=== PATIENT | female | born 1935 | race Caucasian/White ===

== ENCOUNTER → 2017-01-18 | Outpatient (CLI) | payer MEDICARE, OTHER ==
[~2017-01-18] MED LIST: ACET300T2 PO; ATEN50TA PO; ATOR40TA PO; ATOR40TA16 PO; CARD240C6 PO; CHOL5000 PO; CYCL5TAB PO; D 50CAP PO; DABI150 PO; DIGO0.12 PO; DILT-47 PO; GLUCTAB PO; LEVO75TA3 PO; METF500T PO; OMEP20TA39 PO; OMEP20TA93 PO; PRAD150C PO; SUCR1SUS5 PO
[2017-01-18 10:19] LABS: HEMATOCRIT 40.8 % (35.0-46.0); MEAN CELL VOLUME 84.4 FL (80.0-100.0); MEAN CORPUSCULAR HEMOGLOBIN 27.3 PG (27.0-34.0); MEAN CORPUSCULAR HGB CONC 32.3 % (32.0-36.0); PLATELET COUNT 221 TH/MM3 (150-450); RED BLOOD COUNT 4.84 MIL/MM3 (4.00-5.30); RED CELL DISTRIBUTION WIDTH 14.4 % (11.6-17.2); REVIEW FLAG FINAL; WHITE BLOOD COUNT 10.1 TH/MM3 (4.0-11.0)
[2017-01-18 10:20] LABS: APTT (PATIENT) 39.4 SEC (24.3-30.1); INTERNATIONAL NORMALIZED RATIO 1.1 RATIO; PROTHROMBIN TIME - PATIENT 12.5 SEC (9.8-11.6)
[2017-01-18 10:38] LABS: BLOOD, URINE NEG (NEG); GLUCOSE,URINE NEG (NEG); HYALINE CAST, URINE 4 /lpf (RARE); KETONE, URINE NEG (NEG); MUCUS URINE FEW /lpf (OCC); NITRITE,URINE NEG (NEG); PH, URINE 5.5 (5.0-8.5); SQUAMOUS EPITHELIAL CELL URINE 2 /hpf (0-5); URINE COLOR YELLOW (YELLW/STRAW)
[2017-01-18 10:39] LABS: COMMENT (UR) CATH-CULT NOT IND; CULTURE IF INDICATED CATH CULTURE NOT IND
[2017-01-18 11:06] LABS: POTASSIUM 4.1 MEQ/L (3.5-5.1)
== END ==
LOC: CPRE 09:11
PROVIDERS: ATTEND Orthopaedic Surgery
DX: Z01.812 Encounter for preprocedural laboratory examination (principal); M16.11 Unilateral primary osteoarthritis, right hip; M79.609 Pain in unspecified limb; I10 Essential (primary) hypertension
CPT/HCPCS: 80048; 81001; 85027; 85610; 85730

== ENCOUNTER 2017-01-23 11:19 | Emergency (ER) | payer MEDICARE, OTHER ==
[~2017-01-23 11:19] MED LIST changes: -ATOR40TA PO; -CARD240C6 PO; -CYCL5TAB PO; -D 50CAP PO; -DABI150 PO; -GLUCTAB PO; -OMEP20TA39 PO; -SUCR1SUS5 PO
[2017-01-23 11:22] VITALS: BP 165/72; PULSE 75; RESP 18; TEMP 97.7; O2SAT 96
[2017-01-23 12:11] VITALS: PULSE 76; RESP 16; O2SAT 99
[2017-01-23] MEDS ORDERED: SODIUM CHLORIDE 0.9% FLUSH 10 ML FLUSH IVF PRN (12:15)
[2017-01-23] MEDS ORDERED: ORPHENADRINE INJ 60 MG/2 ML AMP IV ONE (12:15)
[2017-01-23] MEDS ORDERED: KETOROLAC TROMETHAMINE 30 MG/ML (IVP) VIAL IVP ONE (12:15)
--- NOTE | 2017-01-23 12:20 | PD ---
HPI Chief Complaint: Headache Time Seen by Provider: 11:50 Travel History International Travel<30 days: No Contact w/Intl Traveler<30days: No Traveled to known affect area: No History of Present Illness HPI Patient is an 81-year-old female presenting to the emergency room for evaluation of a headache. Patient states the headache started yesterday, it was preceded by neck pain which started on Sunday. Patient states she felt as if she had a "crick" in her neck which has gotten progressively worse since that time. She states that her pain is a 6 out of 10. She took Tylenol No. 3 at 5:00 this morning with some relief of symptoms but no resolution. She went to [facility] yesterday and was diagnosed with bronchitis, they provided her with a prescription for baclofen to be taken once a day, she took it last night with no relief of symptoms. Patient states her headache radiates from the her neck up the back of her head. Patient has been off of Pradaxa due to hip surgery that was scheduled for today, it was subsequently postponed due to patient's bronchitis. She took a dose of Pradaxa last night. Patient reports a productive cough with yellow sputum, she denies any fever, chills, nausea, vomiting, chest pain, abdominal pain or shortness of breath. She further denies any photophobia or visual changes. Family members at bedside. PFSH Past Medical History Hx Anticoagulant Therapy: Yes (PRADAXA) Arthritis: Yes Atrial Fibrillation: Yes Congestive Heart Failure: Yes Diabetes: Yes Patient Takes Glucophage: Yes Diminished Hearing: No Endocrine: Yes GERD: Yes Gout: Yes Genitourinary: Yes (URETHRAL DILATION, HX BLADDER INFECTIONS X 2) Hepatitis: No Hiatal Hernia: No Hypertension: Yes Immune Disorder: No Neurologic: No Psychiatric: No Reproductive: No Respiratory: No Thyroid Disease: Yes Tetanus Vaccination: < 5 Years Influenza Vaccination: Yes ?: Not : 6 Para: 6 Past Surgical History AICD: No Appendectomy: Yes Body Medical Devices: hardward in the right tibia and right ankle left knee Cholecystectomy: Yes Eye Surgery: Yes (netta cataract removal) Genitourinary Surgery: Yes (URETHRAL DILATION) Hysterectomy: Yes Joint Replacement: Yes (RIGHT HIP) Oral Surgery: Yes (dental implants) Pacemaker: Yes Tonsillectomy: Yes Social History Alcohol Use: Yes (OCC.) Tobacco Use: No (quit 1981) Substance Use: No Allergies-Medications (Allergen,Severity, Reaction): Coded Allergies: colchicine (Verified Adverse Reaction, Severe, VOMITING, 01/23/17) Uncoded Allergies: GOUT MEDICATION UNSURE WHICH ONE (Allergy, Mild, HANDS AND FEET ITCHING AND SWOLLEN, 04/19/15) Reported Meds & Prescriptions Reported Meds & Active Scripts Active Reported Levothyroxine (Levothyroxine Sodium) 75 Mcg Tab 75 Mcg PO DAILY Atenolol 50 Mg Tab 50 Mg PO DAILY Acetaminophen-Codeine 300-30 mg Tab 1 Tab PO DAILY Diltiazem ER 24 HR 300 Mg Caper 300 Mg PO DAILY Omeprazole 20 Mg Tab 20 Mg PO DAILY Digoxin 0.125 Mg Tab 0.125 Mg PO DAILY Atorvastatin (Atorvastatin Calcium) 40 Mg Tab 40 Mg PO DAILY Vitamin D3 (Cholecalciferol) 5,000 Unit Cap 5,000 Units PO DAILY Metformin (Metformin HCl) 500 Mg Tab 500 Mg PO BIDPC Pradaxa (Dabigatran) 150 Mg Cap 150 Mg PO BID Review of Systems Except as stated in HPI: all other systems reviewed are Neg General / Constitutional: No: Fever, Chills Eyes: No: Photophobia, Visual changes HENT: Positive: Headaches, Neck Stiffness Cardiovascular: No: Chest Pain or Discomfort Respiratory: Positive: Cough, No: Shortness of Breath Gastrointestinal: No: Nausea, Vomiting, Abdominal Pain Genitourinary: No: Dysuria Musculoskeletal: Positive: Myalgias, Cramping Neurologic: No: Weakness, Dizziness, Focal Abnormalities Physical Exam Narrative GENERAL: Well-developed, well-nourished, alert elderly female. Resting comfortably in no acute distress. SKIN: Warm and dry. HEAD: Atraumatic. Normocephalic. EYES: Pupils equal and round. No scleral icterus. No injection or drainage. ENT: No nasal bleeding or discharge. Mucous membranes pink and moist. NECK: Trachea midline. No JVD. Tenderness to palpation in paraspinal musculature and cervical region. CARDIOVASCULAR: Regular rate and rhythm. RESPIRATORY: No accessory muscle use. Clear to auscultation. Breath sounds equal bilaterally. GASTROINTESTINAL: Abdomen soft, non-tender, nondistended. Hepatic and splenic margins not palpable. MUSCULOSKELETAL: Extremities without clubbing, cyanosis, or edema. No obvious deformities. NEUROLOGICAL: Awake and alert. No obvious cranial nerve deficits. Motor grossly within normal limits. Five out of 5 muscle strength in the arms and legs. Normal speech. PSYCHIATRIC: Appropriate mood and affect; insight and judgment normal. Data Data Last Documented VS Vital Signs Date Time Temp Pulse Resp B/P (MAP) Pulse Ox O2 Delivery O2 Flow Rate FiO2 01/23/17 13:12 17 01/23/17 12:11 76 99 Room Air 01/23/17 11:22 97.7 Orders Orders Complete Blood Count With Diff (01/23/17 12:01) Comprehensive Metabolic Panel (01/23/17 12:01) Ct Brain W/O Iv Contrast(Rout) (01/23/17 12:01) Ecg Monitoring (01/23/17 12:01) Iv Access Insert/Monitor (01/23/17 12:01) Oximetry (01/23/17 12:01) Sodium Chloride 0.9% Flush (Ns Flush) (01/23/17 12:15) Ketorolac Inj (Toradol Inj) (01/23/17 12:15) Orphenadrine Inj (Norflex Inj) (01/23/17 12:15) Ct Cerv Spine W/O Contrast (01/23/17 ) Chest, Single Ap (01/23/17 ) Labs Laboratory Tests Test 01/23/17 12:00 White Blood Count 10.2 TH/MM3 Red Blood Count 4.54 MIL/MM3 Hemoglobin 12.7 GM/DL Hematocrit 38.0 % Mean Corpuscular Volume 83.8 FL Mean Corpuscular Hemoglobin 28.1 PG Mean Corpuscular Hemoglobin Concent 33.5 % Red Cell Distribution Width 14.7 % Platelet Count 244 TH/MM3 Mean Platelet Volume 9.6 FL Neutrophils (%) (Auto) 70.8 % Lymphocytes (%) (Auto) 14.8 % Monocytes (%) (Auto) 12.5 % Eosinophils (%) (Auto) 1.4 % Basophils (%) (Auto) 0.5 % Neutrophils # (Auto) 7.2 TH/MM3 Lymphocytes # (Auto) 1.5 TH/MM3 Monocytes # (Auto) 1.3 TH/MM3 Eosinophils # (Auto) 0.1 TH/MM3 Basophils # (Auto) 0.1 TH/MM3 CBC Comment DIFF FINAL Differential Comment Blood Urea Nitrogen 14 MG/DL Creatinine 1.09 MG/DL Random Glucose 100 MG/DL Total Protein 7.5 GM/DL Albumin 3.1 GM/DL Calcium Level 10.3 MG/DL Alkaline Phosphatase 71 U/L Aspartate Amino Transf (AST/SGOT) 23 U/L Alanine Aminotransferase (ALT/SGPT) 27 U/L Total Bilirubin 0.6 MG/DL Sodium Level 137 MEQ/L Potassium Level 4.6 MEQ/L Chloride Level 103 MEQ/L Carbon Dioxide Level 25.9 MEQ/L Anion Gap 8 MEQ/L Estimat Glomerular Filtration Rate 48 ML/MIN MDM Medical Decision Making Medical Screen Exam Complete: Yes Emergency Medical Condition: Yes Medical Record Reviewed: Yes Interpretation(s) Laboratory Tests Test 01/23/17 12:00 White Blood Count 10.2 TH/MM3 Red Blood Count 4.54 MIL/MM3 Hemoglobin 12.7 GM/DL Hematocrit 38.0 % Mean Corpuscular Volume 83.8 FL Mean Corpuscular Hemoglobin 28.1 PG Mean Corpuscular Hemoglobin Concent 33.5 % Red Cell Distribution Width 14.7 % Platelet Count 244 TH/MM3 Mean Platelet Volume 9.6 FL Neutrophils (%) (Auto) 70.8 % Lymphocytes (%) (Auto) 14.8 % Monocytes (%) (Auto) 12.5 % Eosinophils (%) (Auto) 1.4 % Basophils (%) (Auto) 0.5 % Neutrophils # (Auto) 7.2 TH/MM3 Lymphocytes # (Auto) 1.5 TH/MM3 Monocytes # (Auto) 1.3 TH/MM3 Eosinophils # (Auto) 0.1 TH/MM3 Basophils # (Auto) 0.1 TH/MM3 CBC Comment DIFF FINAL Differential Comment Blood Urea Nitrogen 14 MG/DL Creatinine 1.09 MG/DL Random Glucose 100 MG/DL Total Protein 7.5 GM/DL Albumin 3.1 GM/DL Calcium Level 10.3 MG/DL Alkaline Phosphatase 71 U/L Aspartate Amino Transf (AST/SGOT) 23 U/L Alanine Aminotransferase (ALT/SGPT) 27 U/L Total Bilirubin 0.6 MG/DL Sodium Level 137 MEQ/L Potassium Level 4.6 MEQ/L Chloride Level 103 MEQ/L Carbon Dioxide Level 25.9 MEQ/L Anion Gap 8 MEQ/L Estimat Glomerular Filtration Rate 48 ML/MIN Last Impressions Head CT 01/23/17 1201 Signed Impressions: Service Date/Time: Monday, January 23, 2017 12:22 - CONCLUSION: 1. Bilateral cortical atrophy. 2. No acute intracranial pathology. Oz Del Valle MD Chest X-Ray 01/23/17 0000 Signed Impressions: Service Date/Time: Monday, January 23, 2017 12:44 - CONCLUSION: 1. 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 This has progressed slightly from prior exam. 2. Compensated cardiomegaly. 3. Stable degenerative changes in the dorsal spine and both shoulders. Arslan Degroot MD Cervical Spine CT 01/23/17 0000 Signed Impressions: Service Date/Time: Monday, January 23, 2017 12:22 - CONCLUSION: 1. Diffuse moderate primary bony degenerative changes, disc degeneration and disc space narrowing throughout the cervical spine. 2. Mild anterior spondylolisthesis of C3 over C4. 3. Broad-based bulging with disc osteophyte complexes at multiple levels. Oz Del Valle MD Vital Signs Date Time Temp Pulse Resp B/P (MAP) Pulse Ox O2 Delivery O2 Flow Rate FiO2 01/23/17 11:56 76 17 98 Room Air 01/23/17 11:22 97.7 75 18 165/72 (103) 96 Room Air Differential Diagnosis Torticollis versus muscle spasm versus tension headache versus less likely hemorrhage versus less likely CVA versus other Narrative Course Patient is an 81-year-old female presenting to the emergency evaluation of a headache. On exam patient had significant tenderness to the cervical musculature. There are no focal deficits on exam. Additionally patient reported being diagnosed with bronchitis yesterday and a chest x-ray was ordered to rule out pneumonia. Labs and imaging ordered and pending. IV access established and patient was placed on clinical research monitor. CBC is unremarkable Chemistry with no acute findings CT of the brain which was read by the radiologist shows bilateral cortical atrophy, no acute intracranial pathology. . CT of the cervical spine shows degenerative changes, disc degeneration and disc space narrowing throughout the cervical spine. Chest x-ray shows findings suggestive of COPD with interstitial fibrosis. Compensated cardiomegaly. Stable degenerative changes in the dorsal spine and both shoulders. Patient reports improvement in her pain after administration of medications in the emergency department. Patient is encouraged follow-up with her primary doctor. She was advised to follow-up with her primary doctor. Was encouraged to complete full course of antibiotics as previously prescribed from the urgent care center yesterday. She is advised to come back to the emergency department for any new or worsening symptoms. She verbalized understanding of instructions. Patient stable for discharge. Diagnosis Primary Impression: Spasm of cervical paraspinous muscle Additional Impression: Headache, cervicogenic Referrals: Primary Care Physician 3 days Patient Instructions: Acute Neck Pain (ED), Bladder Neck Suspension (GEN), General Instructions, Muscle Spasm (ED) Additional Instructions: Take medications as directed Apply warm heat to affected area, you may apply topical analgesic such as BenGay Biofreeze as needed and as directed to affected area. Follow-up with your primary doctor Continue medications as previously prescribed Return to emergency department for any new or worsening symptoms Take [id number] acetaminophen as needed and as directed for pain Med/Other Pt SpecificInfo: Prescription(s) given Scripts Cyclobenzaprine (Flexeril) 5 Mg Tab 5 MG PO TID for Muscle Spasm, #21 TAB 0 Refills Prov: Maria Dolores Card 01/23/17 Disposition: 01 DISCHARGE HOME Condition: Stable Maria Dolores Card Jan 23, 2017 12:20
--- NOTE | 2017-01-23 12:28 | RADRPT ---
EXAM DATE/TIME: 01/23/2017 12:22 [facility] COMPARISON: No previous studies available for comparison. INDICATIONS : Cephalgia radiating down posterior neck. RADIATION DOSE: 29.42 CTDIvol (mGy) MEDICAL HISTORY : Cardiovascular disease. Hypertension. SURGICAL HISTORY : Appendectomy. Hysterectomy.Cholecystectomy. ENCOUNTER: Initial ACUITY: 1 week PAIN SCALE: 5/10 LOCATION: occipital TECHNIQUE: Multiple contiguous axial images were obtained of the head. Using automated exposure control and adj ustment of the mA and/or kV according to patient size, radiation dose was kept as low as reasonably a chievable to obtain optimal diagnostic quality images. DICOM format image data is available electro nically for review and comparison. FINDINGS: CEREBRUM: The ventricles are normal for age. There is bilateral cortical atrophy especially over the frontal lo bes. No evidence of midline shift, mass lesion, hemorrhage or acute infarction. No extra-axial fluid collections are seen. POSTERIOR FOSSA: The cerebellum and brainstem are intact. There is some atrophy of the cerebellar hemispheres. The 4th ventricle is midline. The cerebellopontine angle is unremarkable. EXTRACRANIAL: The visualized portion of the orbits is intact. SKULL: The calvaria is intact. No evidence of skull fracture. CONCLUSION: 1. Bilateral cortical atrophy. 2. No acute intracranial pathology. Oz Del Valle MD on January 23, 2017 at 12:27 Board Certified Radiologist. This report was verified electronically.
[2017-01-23 12:32] LABS: AUTOMATED NEUTROPHIL # 7.2 TH/MM3 (1.8-7.7); BASOPHIL # 0.1 TH/MM3 (0-0.2); BASOPHIL % 0.5 % (0.0-2.0); EOSINOPHIL # 0.1 TH/MM3 (0-0.4); EOSINOPHIL % 1.4 % (0.0-4.0); HEMO FLAGS DIFF FINAL; LYMPH % 14.8 % (9.0-44.0); LYMPHOCYTE # 1.5 TH/MM3 (1.0-4.8); MEAN CELL VOLUME 83.8 FL (80.0-100.0); MEAN CORPUSCULAR HEMOGLOBIN 28.1 PG (27.0-34.0); MEAN CORPUSCULAR HGB CONC 33.5 % (32.0-36.0); MONO % 12.5 % (0.0-8.0); NEUT % 70.8 % (16.0-70.0); PLATELET COUNT 244 TH/MM3 (150-450); RED BLOOD COUNT 4.54 MIL/MM3 (4.00-5.30); RED CELL DISTRIBUTION WIDTH 14.7 % (11.6-17.2); WHITE BLOOD COUNT 10.2 TH/MM3 (4.0-11.0)
--- NOTE | 2017-01-23 12:45 | PD ---
Physical Exam Date Seen by Provider: Jan 23, 2017 Narrative This patient presents with a chief complaint of headache. She also has a cough. She was seen at an urgent care center yesterday and diagnosed with bronchitis. Data Data Last Documented VS Vital Signs Date Time Temp Pulse Resp B/P (MAP) Pulse Ox O2 Delivery O2 Flow Rate FiO2 01/23/17 12:11 76 16 99 Room Air 01/23/17 11:22 97.7 Orders Orders Complete Blood Count With Diff (01/23/17 12:01) Comprehensive Metabolic Panel (01/23/17 12:01) Ct Brain W/O Iv Contrast(Rout) (01/23/17 12:01) Ecg Monitoring (01/23/17 12:01) Iv Access Insert/Monitor (01/23/17 12:01) Oximetry (01/23/17 12:01) Sodium Chloride 0.9% Flush (Ns Flush) (01/23/17 12:15) Ketorolac Inj (Toradol Inj) (01/23/17 12:15) Orphenadrine Inj (Norflex Inj) (01/23/17 12:15) Ct Cerv Spine W/O Contrast (01/23/17 ) Chest, Single Ap (01/23/17 ) Labs Laboratory Tests Test 01/23/17 12:00 White Blood Count 10.2 TH/MM3 Red Blood Count 4.54 MIL/MM3 Hemoglobin 12.7 GM/DL Hematocrit 38.0 % Mean Corpuscular Volume 83.8 FL Mean Corpuscular Hemoglobin 28.1 PG Mean Corpuscular Hemoglobin Concent 33.5 % Red Cell Distribution Width 14.7 % Platelet Count 244 TH/MM3 Mean Platelet Volume 9.6 FL Neutrophils (%) (Auto) 70.8 % Lymphocytes (%) (Auto) 14.8 % Monocytes (%) (Auto) 12.5 % Eosinophils (%) (Auto) 1.4 % Basophils (%) (Auto) 0.5 % Neutrophils # (Auto) 7.2 TH/MM3 Lymphocytes # (Auto) 1.5 TH/MM3 Monocytes # (Auto) 1.3 TH/MM3 Eosinophils # (Auto) 0.1 TH/MM3 Basophils # (Auto) 0.1 TH/MM3 CBC Comment DIFF FINAL Differential Comment MDM Supervised Visit with MEGAN: Yes Narrative Course I, Dr. Hannah, have reviewed the advance practice practitioner's documentation and am in agreement, met with the patient face to face, made the diagnosis, and the medical decision making was done by me. *My assessment and Findings: The patient is awake and alert and sitting up in the bed smiling and in no acute distress. She is lucid. Please see Maria Dolores Brewer NP's note for results of laboratory and radiographic evaluation, ED course, final diagnosis and disposition Dang Hannah MD Jan 23, 2017 12:45
--- NOTE | 2017-01-23 12:49 | RADRPT ---
EXAM DATE/TIME: 01/23/2017 12:22 [facility] COMPARISON: No previous studies available for comparison. INDICATIONS : Cephalgia radiating down posterior neck. RADIATION DOSE: 17.31 CTDIvol (mGy) MEDICAL HISTORY : Cardiovascular disease. Hypertension. SURGICAL HISTORY : Appendectomy. Cholecystectomy.Hysterectomy. ENCOUNTER: Initial ACUITY: 1 week PAIN SCALE: 5/10 LOCATION: neck TECHNIQUE: Volumetric scanning of the cervical spine was performed. Multiplanar reconstructions in the sagittal, coronal and oblique axial planes were performed. Using automated exposure control and adjustment o f the mA and/or kV according to patient size, radiation dose was kept as low as reasonably achievable to obtain optimal diagnostic quality images. DICOM format image data is available electronically f or review and comparison. FINDINGS: VERTEBRAE: There is moderate diffuse primary degenerative changes with disc degeneration and disc space narrowin g throughout the cervical spine. No compression fractures are demonstrated. There is disc space narro wing at C4-5, C5-6 and C6-7 ALIGNMENT: Mild anterior spondylolisthesis of C3 over C4 by about 2 mm. C2-C3: The bony spinal canal is normal in size. No evidence of disc bulge or herniation. The neural forami na are bilaterally patent. Bilateral facet arthritis. C3-C4: The bony spinal canal is normal in size. No evidence of disc bulge or herniation. The neural forami na are bilaterally patent. Bilateral facet arthritis. C4-C5: Broad-based bulging with disc osteophyte complex in the right paracentral location. There is narrowin g of the right neural foramina. The left neural foramen is patent. C5-C6: Broad-based bulging with disc osteophyte complex. Narrowing of the neural foramina bilaterally. C6-C7: Broad-based bulging disc osteophyte complex. The neural foramina appear to be patent. C7-T1: The bony spinal canal is normal in size. No evidence of disc bulge or herniation. The neural forami na are bilaterally patent. CONCLUSION: 1. Diffuse moderate primary bony degenerative changes, disc degeneration and disc space narrowing thr oughout the cervical spine. 2. Mild anterior spondylolisthesis of C3 over C4. 3. Broad-based bulging with disc osteophyte complexes at multiple levels. Oz Del Valle MD on January 23, 2017 at 12:45 Board Certified Radiologist. This report was verified electronically.
[2017-01-23 13:01] LABS: ALT (GPT) 27 U/L (10-53); ANION GAP 8 MEQ/L (5-15); AST (GOT) 23 U/L (15-37); BICARBONATE 25.9 MEQ/L (21.0-32.0); BLOOD UREA NITROGEN 14 MG/DL (7-18); CHLORIDE 103 MEQ/L (98-107); GLOMERULAR FILTRATION RATE 48 ML/MIN (>89); POTASSIUM 4.6 MEQ/L (3.5-5.1); SODIUM (NA) 137 MEQ/L (136-145)
[2017-01-23 13:03] LABS: ALKALINE PHOSPHATASE 71 U/L (45-117); TOTAL BILIRUBIN ADULT 0.6 MG/DL (0.2-1.0)
--- NOTE | 2017-01-23 13:04 | RADRPT ---
EXAM DATE/TIME: 01/23/2017 12:44 [facility] COMPARISON: CHEST SINGLE AP, August 22, 2015, 18:13. INDICATIONS : Cough, headache, neck pain MEDICAL HISTORY : Cardiovascular disease. Hypertension SURGICAL HISTORY : Pacemaker. Appendectomy. Cholecystectomy. hysterectomy ENCOUNTER: Initial ACUITY: 1 week PAIN SCORE: 5/10 LOCATION: Bilateral chest FINDINGS: A single view of the chest demonstrates chronic interstitial changes characteristic of COPD with prob able fibrosis. This has progressed slightly from the prior exam. Heart size is prominent but well com pensated. Left subclavian bipolar pacer is radiographically intact. Degenerative spurring of the thor acolumbar spine as well as both shoulders, left worse than right. CONCLUSION: 1. 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 This has progressed slightly from marilou or exam. 2. Compensated cardiomegaly. 3. Stable degenerative changes in the dorsal spine and both shoulders. Arslan Degroot MD on January 23, 2017 at 13:00 Board Certified Radiologist. This report was verified electronically.
[2017-01-23 13:52] VITALS: BP 142/71; PULSE 67; RESP 16; TEMP 97.8; O2SAT 99
[2017-01-23] MEDS ORDERED: CYCL5TAB PO (13:57)
[2017-01-23 14:15] VITALS: BP 124/78; TEMP 97.8
== END 2017-01-23 14:15 | disposition home or self-care (01) ==
LOC: NEPE 11:19
DX: R51 Headache (principal); M62.838 Other muscle spasm; R05 Cough; M50.30 Other cervical disc degeneration, unspecified cervical region; M43.12 Spondylolisthesis, cervical region; J44.9 Chronic obstructive pulmonary disease, unspecified; I51.7 Cardiomegaly; I11.0 Hypertensive heart disease with heart failure; I50.9 Heart failure, unspecified
CPT/HCPCS: 70450; 71010; 72125; 80053; 85025; 96374; 96375; 99285; J1885; J2360

== ENCOUNTER → 2017-02-13 | Day surgery (SDC) | payer MEDICARE, OTHER ==
[~2017-02-13] VITALS: Ht 157.5 cm; Wt 60.8 kg
[~2017-02-13] MED LIST changes: +*morphine SULFATE 8 MG/ML PERIprocedure ONLY ONE; +ACETAMINOPHEN 1000 MG/100 ML 100 ML IV ONE; +ACETAMINOPHEN/HYDROcodone 325 MG/5 MG TAB PO PRN; +CHLORHEXIDINE GLUCONATE 2 % 1 PACK (2 CLOTHS) TOPICAL PRN; +CHLORHEXIDINE GLUCONATE 4% SOLN 120 ML BTL TOPICAL SCH; +CYCL5TAB PO; +DO NOT ADM ANY ANTICOAGULANT DRUGS PRN; +EXPAREL PERI-ARTICULAR INJECTION (TOTAL VOL. 60 ML) P-ARTICULR SCH; +FAMOTIDINE 20 MG/2 ML VIAL ONE; +GENTAMICIN SULFATE 80 MG/2 ML VIAL ONE; +INSULIN HUMAN REGULAR 1,000 UNITS/10 ML VIAL SQ PRN; +LACTATED RINGER'S 1000 ML IV PRN; +METOPROLOL TARTRATE 25 MG TAB PO PRN; +MORPHINE SULFATE 4 MG/ML INJ IV PUSH PRN; +ONDANSETRON HCL 4 MG/2 ML VIAL IV PUSH PRN; +POVIDONE IODINE 5% (ANTISEPSIS KIT) 4 APPLICATIONS EACH NARE PRN; +SODIUM CHLORID 0.9% 500 ML IV PRN; +SODIUM CHLORIDE 0.9% FLUSH 5 ML FLUSH IVF PRN; +SODIUM CHLORIDE 0.9% FLUSH 5 ML FLUSH IVF SCH; +SODIUM CHLORIDE 0.9% IV SCH; +TRANEXAMIC ACID IV SCH; +ceFAZolin 2 GM PREMIX 50 ML IV SCH
--- NOTE | 2017-02-13 12:14 | HHI.PR ---
Immediate Post Op Note Procedure Date: Feb 13, 2017 Pre Op Diagnosis: (1) Breakdown (mechanical) of internal fixation device of other bones, subsequent encounter Post Op Diagnosis: (1) Breakdown (mechanical) of internal fixation device of other bones, subsequent encounter Surgeon: Rodo Parra MD [employer]umber Chain Offbearer(s): SULAIMAN Husain Procedure: Removal broken cable, right hip. Findings: Broken cable around right proximal femur. Complications: 0 Specimen(s) removed: 0 Estimated blood loss: 15ml Anesthesia: General, Local Drains: None IVF Patient to: PACU Patient Condition: Good Date/Time of Procedure: SEE SURGICAL CARE RECORD Scooby Parra MD ([facility]) Feb 13, 2017 12:14
--- NOTE | 2017-02-13 12:36 | MP ---
cc: Calin TREVIZO. DATE OF SURGERY 02/13/2017 PREOPERATIVE DIAGNOSIS Broken internal fixation device (cable) right total hip. POSTOPERATIVE DIAGNOSIS Broken internal fixation device (cable) right total hip. OPERATION PERFORMED Removal of broken cable, right hip. SURGEON Scooby Trevizo MD CAGE MANAGER SULAIMAN Husain. ANESTHESIA General with supplemental local. INDICATIONS AND FINDINGS This 81-year-old woman has had longstanding pain in her right hip because of a broken cable. She has not responded to conservative measures. She has now come for removal of the cable. Physical findings showed a relatively normal-appearing hip with a well-healed surgical incisional scar consistent with a previous total hip replacement. X-rays showed a total hip replacement that was well fixed with a broken cable and the soft tissues posterior to it. PROCEDURE The patient was brought to the clean air operative suite where a general anesthetic was administered. The patient was placed in the lateral position on a Biomet lateral positioner on the Srini table. The hip was then prepped with alcohol, Hibiclens and ChloraPrep and draped in the usual manner with the hip draped free. She received prophylactic antibiotics in the form of Ancef and also received tranexamic acid. An appropriate time-out procedure was carried out. Local anesthesia was administered in the area of the incision. The incision was then made over the distal end of her prior incision. This was deepened through the subcutaneous tissues to the area of the femur. This was done after verifying position with the C-arm fluoroscopy. Dissection was carried out posterior to the femur. A well-demarcated fascia bismark was not encountered. The incision was carried down posteriorly and with C-arm fluoroscopy for guidance, the cable crimp was identified, grasped and the entire cable removed. The wound was irrigated. Local anesthesia was administered throughout the wound with Exparel. Wound closure then commenced using 0 Vicryl interrupted [id number] sutures for the fascial structures, 2-0 Vicryl interrupted simple sutures with buried knots for the subcutaneous tissues and 4-0 Monocryl continuous subcuticular closure for the skin. The wound was dressed with Steri-Strips, followed by dry dressing in the form of an Aquacel or similar type dressing. The patient was transferred to the recovery room in satisfactory condition having tolerated the procedure well. COUNTS Correct. SPECIMEN None. ESTIMATED BLOOD LOSS 15 mL. MD ASH Posada/GRACE /12:14 PM /12:22 PM
[2017-02-13 14:15] VITALS: TEMP 97
--- NOTE | 2017-02-13 14:19 | RADRPT ---
EXAM DATE/TIME: 02/13/2017 11:41 [facility] COMPARISON: FLUOROSCOPY PORTABLE UP TO 1HR, February 13, 2017, 0:00. INDICATIONS : Hardware removal right hip. MEDICAL HISTORY : None. SURGICAL HISTORY : Right total hip replacement ENCOUNTER: Initial ACUITY: 1 day PAIN SCORE: Non-responsive. LOCATION: Right hip FINDINGS: Single intraprocedural oblique view of the right hip. There is a right hip arthroplasty in place. Vis ualized portions of the hardware appear grossly intact. CONCLUSION: 1. Right hip arthroplasty, as above. Nico Foley MD on February 13, 2017 at 14:16 Board Certified Radiologist. This report was verified electronically.
[2017-02-13 14:26] VITALS: BP 165/89; PULSE 70; RESP 20; O2SAT 97
== END | disposition home or self-care (01) ==
LOC: HSDC 07:24
PROVIDERS: ATTEND Orthopaedic Surgery
DX: T84.010A Broken internal right hip prosthesis, initial encounter (principal); Z96.641 Presence of right artificial hip joint
CPT/HCPCS: 01210; 20680; 73501; 76000; 86850; 86900; 86901; C9290; J0131; J0690; J1580; J2270; J7120

== ENCOUNTER → 2017-06-11 | Outpatient (CLI) | payer MEDICARE, OTHER ==
[~2017-06-11] MED LIST changes: -*morphine SULFATE 8 MG/ML PERIprocedure ONLY ONE; -ACETAMINOPHEN 1000 MG/100 ML 100 ML IV ONE; -ACETAMINOPHEN/HYDROcodone 325 MG/5 MG TAB PO PRN; -CHLORHEXIDINE GLUCONATE 2 % 1 PACK (2 CLOTHS) TOPICAL PRN; -CHLORHEXIDINE GLUCONATE 4% SOLN 120 ML BTL TOPICAL SCH; -CYCL5TAB PO; -DO NOT ADM ANY ANTICOAGULANT DRUGS PRN; -EXPAREL PERI-ARTICULAR INJECTION (TOTAL VOL. 60 ML) P-ARTICULR SCH; -FAMOTIDINE 20 MG/2 ML VIAL ONE; -GENTAMICIN SULFATE 80 MG/2 ML VIAL ONE; -INSULIN HUMAN REGULAR 1,000 UNITS/10 ML VIAL SQ PRN; -LACTATED RINGER'S 1000 ML IV PRN; -METOPROLOL TARTRATE 25 MG TAB PO PRN; -MORPHINE SULFATE 4 MG/ML INJ IV PUSH PRN; -ONDANSETRON HCL 4 MG/2 ML VIAL IV PUSH PRN; -POVIDONE IODINE 5% (ANTISEPSIS KIT) 4 APPLICATIONS EACH NARE PRN; -SODIUM CHLORID 0.9% 500 ML IV PRN; -SODIUM CHLORIDE 0.9% FLUSH 5 ML FLUSH IVF PRN; -SODIUM CHLORIDE 0.9% FLUSH 5 ML FLUSH IVF SCH; -SODIUM CHLORIDE 0.9% IV SCH; -TRANEXAMIC ACID IV SCH; -ceFAZolin 2 GM PREMIX 50 ML IV SCH
[2017-06-11 11:06] LABS: BILIRUBIN, URINE NEG (NEG); BLOOD, URINE NEG (NEG); GLUCOSE,URINE NEG (NEG); HYALINE CAST, URINE 3 /lpf (RARE); KETONE, URINE NEG (NEG); MUCUS URINE FEW /lpf (OCC); NITRITE,URINE NEG (NEG); PH, URINE 5.5 (5.0-8.5); SQUAMOUS EPITHELIAL CELL URINE <1 /hpf (0-5); URINE COLOR YELLOW (YELLW/STRAW); URINE LEUKOCYTE ESTERASE NEG (NEG)
[2017-06-11 11:11] LABS: HEMATOCRIT 41.7 % (35.0-46.0); HEMOGLOBIN 13.6 GM/DL (11.6-15.3); MEAN CELL VOLUME 84.9 FL (80.0-100.0); MEAN CORPUSCULAR HEMOGLOBIN 27.7 PG (27.0-34.0); MEAN CORPUSCULAR HGB CONC 32.6 % (32.0-36.0); MEAN PLATELET VOLUME 9.9 FL (7.0-11.0); PLATELET COUNT 280 TH/MM3 (150-450); RED BLOOD COUNT 4.91 MIL/MM3 (4.00-5.30); RED CELL DISTRIBUTION WIDTH 14.8 % (11.6-17.2); WHITE BLOOD COUNT 7.9 TH/MM3 (4.0-11.0)
[2017-06-11 11:16] LABS: INTERNATIONAL NORMALIZED RATIO 1.4 RATIO; PROTHROMBIN TIME - PATIENT 14.6 SEC (9.8-11.6)
[2017-06-11 11:28] LABS: BLOOD UREA NITROGEN 16 MG/DL (7-18); CALCIUM 10.4 MG/DL (8.5-10.1); CHLORIDE 105 MEQ/L (98-107); CREATININE 1.12 MG/DL (0.50-1.00); GLOMERULAR FILTRATION RATE 46 ML/MIN (>89); GLUCOSE,FASTING 133 MG/DL (74-99); SODIUM (NA) 142 MEQ/L (136-145)
[2017-06-13 19:21] LABS: HEMOGLOBIN A1C 6.7 % (4.3-6.0)
== END ==
LOC: CPRE 09:53
PROVIDERS: ATTEND Orthopaedic Surgery
DX: Z01.812 Encounter for preprocedural laboratory examination (principal); M79.609 Pain in unspecified limb; E11.9 Type 2 diabetes mellitus without complications; M19.012 Primary osteoarthritis, left shoulder; I10 Essential (primary) hypertension
CPT/HCPCS: 36415; 80048; 81001; 83036; 85027; 85610; 85730

== ENCOUNTER 2017-06-26 06:59 | Inpatient (IN) | payer MEDICARE, OTHER ==
[~2017-06-26] VITALS: Ht 157.5 cm; Wt 60.0 kg
[2017-06-26] MEDS ORDERED: FAT EMULSION 20% INJ 0 ML ONE (07:24)
[2017-06-26] MEDS ORDERED: CHLORHEXIDINE GLUCONATE 4% SOLN 120 ML BTL TOPICAL SCH (07:30)
[2017-06-26] MEDS ORDERED: EXPAREL PERI-ARTICULAR INJECTION (TOTAL VOL. 60 ML) P-ARTICULR SCH ×2 (07:30)
[2017-06-26] MEDS ORDERED: LACTATED RINGER'S 1000 ML IV PRN (07:30)
[2017-06-26] MEDS ORDERED: CHLORHEXIDINE GLUCONATE 2 % 1 PACK (2 CLOTHS) TOPICAL PRN (07:30)
[2017-06-26] MEDS ORDERED: TRANEXAMIC ACID INJ 600 MG in SODIUM CHLORIDE 0.9% INJ 100 ML IV SCH ×4 (07:30)
[2017-06-26] MEDS ORDERED: SODIUM CHLORID 0.9% 500 ML IV PRN (07:30)
[2017-06-26] MEDS ORDERED: INSULIN HUMAN REGULAR 1,000 UNITS/10 ML VIAL SQ PRN (07:30)
[2017-06-26] MEDS ORDERED: POVIDONE IODINE 5% (ANTISEPSIS KIT) 4 APPLICATIONS EACH NARE PRN (07:30)
[2017-06-26] MEDS ORDERED: METOPROLOL TARTRATE 25 MG TAB PO PRN (07:30)
[2017-06-26] MEDS ORDERED: BUPIVACAINE HCL PF 0.5% 30 ML VIAL ONE (07:32)
[2017-06-26] MEDS ORDERED: MIDAZOLAM HCL 2 MG/2 ML VIAL ONE (07:32)
[2017-06-26] MEDS ORDERED: DEXAMETHASONE SOD PHOS PF 10 MG/ML VIAL ONE (07:33)
[2017-06-26] MEDS ORDERED: GENTAMICIN SULFATE 80 MG/2 ML VIAL ONE (07:33)
[2017-06-26] MEDS ORDERED: ceFAZolin 2 GM in NS 100 ML IV SCH (07:45)
[2017-06-26 07:57] LABS: INTERNATIONAL NORMALIZED RATIO 1.1 RATIO; PROTHROMBIN TIME - PATIENT 11.1 SEC (9.8-11.6)
[2017-06-26] MEDS ORDERED: FAMOTIDINE 20 MG/2 ML VIAL ONE (07:59)
[2017-06-26] MEDS ORDERED: ACETAMINOPHEN 1000 MG/100 ML 100 ML IV ONE (07:59)
[2017-06-26] MEDS ORDERED: ONDANSETRON HCL 4 MG/2 ML VIAL ONE (08:03)
[2017-06-26] MEDS ORDERED: FAMOTIDINE 20 MG/2 ML VIAL IV PUSH SCH (08:15)
[2017-06-26] MEDS ORDERED: ACETAMINOPHEN 1000 MG/100 ML 100 ML IV SCH (08:15)
[2017-06-26] MEDS ORDERED: MIDAZOLAM HCL 2 MG/2 ML VIAL IV PUSH SCH (08:15)
[2017-06-26] MEDS ORDERED: ONDANSETRON HCL 4 MG/2 ML VIAL OTHER ONE (08:30)
[2017-06-26] MEDS ORDERED: MORPHINE SULFATE 8 MG/ML INJ IV PUSH PRN (11:15)
[2017-06-26] MEDS ORDERED: ZOLPIDEM TARTRATE 5 MG TAB PO PRN (11:15)
[2017-06-26] MEDS ORDERED: MAGNESIUM HYDROXIDE SUSP 30 ML CUP PO PRN (11:15)
[2017-06-26] MEDS ORDERED: ONDANSETRON HCL 4 MG/2 ML VIAL IVP PRN (11:15)
[2017-06-26] MEDS ORDERED: Post-op Orders (for Pharmacy) XX ONE (11:15)
[2017-06-26] MEDS ORDERED: oxyCODONE/ACETAMINOPHEN 5 MG/325 MG TAB PO PRN (11:15)
[2017-06-26] MEDS ORDERED: TRANEXAMIC ACID INJ 0 MG in SODIUM CHLORIDE 0.9% INJ 100 ML IV SCH (11:15)
--- NOTE | 2017-06-26 11:22 | HHI.FF ---
Face to Face Verification Diagnosis: (1) Status post total replacement of left shoulder Occupational Therapy Left UE Weight Bearing: Non WB Left UE Range of Motion: Active ROM Additional Instructions Do not externally rotate the left shoulder beyond neutral for 6 weeks postoperatively. Do not forcibly internally rotate the left shoulder for 6 weeks postoperatively. Nursing Nursing: Dressing changes Dressing Changes: Daily dressing change, Coverderm/Primapore Additional Instructions Do not remove Dermabond Prineo. I have seen patient Deena Dukes on 06/26/17. My clinical findings support the need for the requested home health care services because: Ltd mobility - disease progression Limited ability to care for self High risk of falls I certify that my clinical findings support that this patient is homebound because: Post-op weakness Unsteady gait/balance Unsafe to leave home unassisted Scooyb Parra MD ([facility]) Jun 26, 2017 11:22
[2017-06-26] MEDS ORDERED: DO NOT ADM ANY ANTICOAGULANT DRUGS PRN (11:30)
--- NOTE | 2017-06-26 11:30 | PD.OP ---
Operative Report Date of Surgery: Jun 26, 2017 Preoperative Diagnosis: (1) Primary osteoarthritis of left shoulder Postoperative Diagnosis: (1) Primary osteoarthritis of left shoulder Procedure: Left total shoulder arthroplasty using [place] ReUnion prosthesis. Anesthesia: Gen. endotracheal with supplemental interscalene block regional and local with Exparel Surgeon: Rodo Parra M.D. Physical Chemistry Teacher(s): SULAIMAN Mendoza Operation and Findings: Indications and findings: This 82-year-old woman has had long-standing pain in her left shoulder. It has not responded to conservative measures. She had difficulty moving the shoulder. Intraoperative findings: The rotator cuff was intact. There was severe arthritis in the glenohumeral joint with loss of articular cartilage and bone-on -bone and osteophytes on both sides of the joint. Implants: This was a [place] ReUnion prosthesis. The humeral stem was a size 11. The humeral head was a size 44 mm x 22 mm, standard. The glenoid was a size 44 mm. The cement was Simplex. The patient was brought to the clean-air operating suite and an interscalene block regional anesthetic was administered followed by a general endotracheal anesthetic. The patient was then placed into a beachchair position bolster under the shoulder. The shoulder was then prepped with alcohol, Hibiclens and ChloraPrep and draped in the usual manner with the shoulder draped free. An appropriate timeout procedure was carried out. An incision was made from the clavicle overlying the area of the coracoid process following the deltopectoral groove to the level of the anterior axillary fold. The incision was deepened through the subcutaneous tissues to the deltopectoral groove. The cephalic vein was protected and reflected laterally along with the deltoid. Anterior exposure was carried out. The distal vessels were identified and ligated. The axillary nerve was identified. The a Bankart self-retaining retractor was inserted under the edge of the conjoined tendon and deltoid. Dissection was then carried out to the rotator interval. This was then opened with the electrocautery and carried down to the upper portion of the subscapularis. A retractor was placed into the joint. The subscapularis was then detached from the lesser tuberosity. A suture was placed through this using #1 FiberWire. The subscapularis was then detached completely down to the lower and and a secondary suture placed with FiberWire at the distal end. The subscapularis was repaired retracted out of the way. The humeral head was inspected. Capsular dissection was carried down to the glenoid. Dissection was then carried out to the undersurface head to the level of the inferior capsule. This capsule capsular dissection was carried out to the 6 o'clock position and slightly beyond. The humeral head was carefully exposed and the shoulder dislocated. The resection guide was positioned at the anatomic neck and stabilized with pins according to the appropriate rotation. The humeral head was then removed with the oscillating saw. This was retained on the back table for sizing purposes. Further dissection was then carried out to the glenoid is moving the glenoid labrum and other soft tissues about the glenoid. Dissection was carried distally as well. This was carried to the 6 o' clock position as well. Humeral preparation was begun. Hand reaming was initiated starting with the initial entry reamer. This was increased by 1 mm increments up to the point where further reaming would not progress at 11 millimeters. Broaching was initiated starting with the broach 2 mm smaller than the reamed size and going in 1 mm increments up to 11 millimeters. The broach was left in place. Calcar planing was carried out by hand. Glenoid preparation was begun by identifying the center of the glenoid using the sizing prosthesis for a size 44 millimeter prosthesis. After this was marked, the initial drill hole was made initially with just a drill and then followed by the use of the centering guide. Reaming of the glenoid was then carried out with the appropriate size reamer. After this was completed the drill guide was positioned in place. The distal drill holes were then made. The secondary guide was then positioned in place and the secondary drill holes were made. The trial prosthesis/punch was impacted into place and then subsequently removed. The size appeared to be appropriate. The glenoid was then irrigated well with antibiotic solution. The drill holes were then dried. Simplex cement was then inserted into the drill holes followed by placement of the glenoid prosthesis. Excess cement was trimmed. Attention was then directed to the humerus. The trial prosthesis was placed onto the broach. The size for the head was determined to be 44 x 22 standard. The shoulder was then taken through a range of motion to evaluate stability and mobility. There was excellent stability and excellent mobility. The offset was appropriate. The trial prosthesis was removed followed by removal broach. The medullary canal was irrigated well. The humeral component was then impacted into place and seated appropriately. The humeral head prosthesis was then positioned in place appropriately and impacted in place after cleaning and drying the receptacle for the trunnion. The shoulder was again taken through a range of motion and checked for stability and mobility which were again comparable to that with the trial. Local anesthesia was administered throughout the shoulder with bupivacaine liposomal. Wound closure then commenced using #1 FiberWire Piyush-Anurag sutures to reattach the subscapularis. The rotator interval was closed with #1 FiberWire [id number] sutures. Motion was again checked and found to be excellent. The deltopectoral interval was approximated with 0 Vicryl interrupted [id number] sutures. Subcutaneous tissues were closed with 2-0 Vicryl interrupted simple sutures with buried knots. Skin was closed with continuous subcuticular closure of 4-0 Monocryl. The wound was dressed with Dermabond Prineo followed by a dry sterile dressing. The shoulder was placed into a cradle sling. The patient was transferred from the operating room to the recovery room in satisfactory condition having tolerated the procedure well. Counts are correct. Specimens: None. Estimated blood loss: 50 mL Scooby Parra MD ([place]) Jun 26, 2017 11:30
[2017-06-26] MEDS: LACTATED RINGER'S 1000 ML INJ 1,000 ML IV SCH ×2 (11:45→21:48)
[2017-06-26] MEDS ORDERED: NEOSTIGMINE 5 MG/5 ML SYRINGE IV PUSH ONE (12:00)
[2017-06-26] MEDS ORDERED: ROCURONIUM INJ 50 MG/5 ML SYRINGE IV PUSH ONE (12:00)
[2017-06-26] MEDS ORDERED: PHENYLEPHRINE HCL 10 MG/ML VIAL IV ONE (12:00)
[2017-06-26] MEDS ORDERED: PROPOFOL 200 MG/20 ML AMP IV ONE (12:00)
[2017-06-26] MEDS ORDERED: LIDOCAINE HCL 1% PF 5 ML SYRINGE OTHER ONE (12:00)
[2017-06-26] MEDS ORDERED: GLYCOPYRROLATE 1 MG/5 ML SYRINGE IV PUSH ONE (12:00)
--- NOTE | 2017-06-26 13:45 | RADRPT ---
EXAM DATE/TIME: 06/26/2017 13:48 [place] COMPARISON: No previous studies available for comparison. INDICATIONS : Post -op left shoulder, prosthesis. MEDICAL HISTORY : Cardiovascular disease. Hypertension SURGICAL HISTORY : Pacemaker. Appendectomy. Cholecystectomy. Hysterectomy. ENCOUNTER: Initial ACUITY: 1 day PAIN SCORE: 0/10 LOCATION: Left shoulder. FINDINGS: The patient is status post left shoulder replacement with prosthesis in good position. No acute fract ure or dislocation is noted. CONCLUSION: Status post left shoulder replacement with prosthesis in good position. Myke Lund MD on June 26, 2017 at 13:41 Board Certified Radiologist. This report was verified electronically.
[2017-06-26] MEDS ORDERED: SODIUM CHLORIDE 0.9% INJ 100 ML ONE (15:30)
[2017-06-26] MEDS ORDERED: ceFAZolin INJ 1,000 MG VIAL ONE (15:30)
--- NOTE | 2017-06-26 15:39 | PD.CONS ---
HPI Service [facility] Hospitalists Consult Requested By Dr. Parra Reason for Consult Medical management Primary Care Physician Rj Vargas MD Diagnoses: (1) Atrial fibrillation (2) Type 2 diabetes mellitus (3) Hypertension (4) Primary osteoarthritis of left shoulder (5) Hypothyroidism History of Present Illness The patient is an 82-year-old female seen in PACU following left shoulder arthroplasty. Hospitalist consultation was requested for medical management. Patient reports history of diabetes, atrial fibrillation, hypothyroidism, hypertension. Her only complaint at this time is sore throat. She does not have any pain in her shoulder at this time. Denies chest pain or dyspnea. Review of Systems Constitutional: DENIES: Fever, Chills, Night Sweats Eyes: DENIES: Blurred vision, Vision loss Ears, nose, mouth, throat: COMPLAINS OF: Throat pain, DENIES: Hearing loss Respiratory: DENIES: Cough, Wheezing, Sputum production, Shortness of breath Cardiovascular: DENIES: Chest pain, Palpitations, Dyspnea on Exertion, Lower Extremity Edema Gastrointestinal: DENIES: Abdominal pain, Constipation, Diarrhea, Nausea, Vomiting Genitourinary: DENIES: Urinary frequency, Urinary incontinence, Urgency, Hematuria, Dysuria, Nocturia Musculoskeletal: DENIES: Joint pain, Muscle aches Integumentary: DENIES: Pruritus, Rash Hematologic/lymphatic: DENIES: Bruising Neurologic: DENIES: Headache Past Family Social History Allergies: Coded Allergies: adhesive tape (Verified Allergy, Severe, Itching, 06/11/17) colchicine (Verified Adverse Reaction, Severe, VOMITING, 02/13/17) Uncoded Allergies: GOUT MEDICATION UNSURE WHICH ONE (Allergy, Mild, HANDS AND FEET ITCHING AND SWOLLEN, 04/19/15) Past Medical History Hypertension Atrial fibrillation Osteoarthritis Hypothyroidism Diabetes mellitus type 2 Past Surgical History Hysterectomy 1974 ORIF right ankle 1991 Pacemaker 2000 Cholecystectomy 2010 Left total knee replacement 2010 Appendectomy 2012 Right total hip replacement 2015 Bilateral cataract extraction Right hip removal of hardware 02/13/17 Reported Medications Tylenol 3 as needed Atenolol 100 mg daily Atorvastatin 40 mg daily Digoxin 125 mcg daily Diltiazem ER 240 mg daily Levothyroxine 75 mcg daily Metformin 500 mg twice daily Ste[place]inson as needed Omeprazole 20 mg daily Pradaxa 150 mg twice daily Vitamin D3 2000 international units daily Family History Mother had stomach cancer Social History Quit smoking in 1991. Occasional alcohol use, one beer or glass of wine with dinner. Denies illicit drug use. Physical Exam Vital Signs Vital Signs Date Time Temp Pulse Resp B/P (MAP) Pulse Ox O2 Delivery O2 Flow Rate FiO2 06/26/17 15:00 69 14 148/85 (106) 94 Room Air 06/26/17 14:00 69 14 155/83 (107) 98 Nasal Cannula 4 06/26/17 13:00 69 14 152/86 (108) 98 Nasal Cannula 4 06/26/17 12:45 69 14 153/82 (105) 98 Nasal Cannula 4 06/26/17 12:30 69 14 153/80 (104) 97 Nasal Cannula 4 06/26/17 12:15 69 14 149/75 (99) 97 Nasal Cannula 4 06/26/17 12:00 69 14 143/76 (98) 97 Nasal Cannula 4 06/26/17 11:45 69 14 138/76 (96) 95 Nasal Cannula 4 06/26/17 11:35 97.3 69 14 130/69 (89) 92 Nasal Cannula 4 06/26/17 08:00 Nasal Cannula 2 06/26/17 07:35 97.9 71 18 145/78 (100) 97 Physical Exam GENERAL: Elderly female in no acute distress. HEENT: Normocephalic, atraumatic. Pupils equal, round and reactive. Extraocular movements intact. No scleral icterus. No injection or drainage. Oropharynx is clear. Mucous membranes are moist. CARDIOVASCULAR: Regular rate and rhythm without murmurs, gallops, or rubs. RESPIRATORY: Clear to auscultation. No wheezes, rales, or rhonchi. Breathing is non-labored. GASTROINTESTINAL: Abdomen soft, non-tender, nondistended. EXTREMITIES: No lower extremity edema. No calf tenderness. Left shoulder in a sling. SCDs. PSYCH: Alert and oriented x 3. Laboratory Laboratory Tests Test 06/26/17 07:35 Prothrombin Time 11.1 Prothromb Time International Ratio 1.1 Activated Partial Thromboplast Time 26.4 Imaging Last Impressions Shoulder X-Ray 06/26/17 1105 Signed Impressions: Service Date/Time: Monday, June 26, 2017 13:48 - CONCLUSION: Status post left shoulder replacement with prosthesis in good position. Myke Lund MD Assessment and Plan Assessment and Plan 1. Osteoarthritis, left shoulder: Status post left total shoulder arthroplasty. Management per orthopedic surgery. Continue pain control, bowel regimen. 2. Hypertension: Continue atenolol, diltiazem. 3. Atrial fibrillation: Continue Pradaxa. Continue atenolol, diltiazem. 4. Hypothyroidism: Continue Synthroid. 5. Diabetes mellitus type 2: Continue metformin. Monitor Accu-Cheks and cover with sliding scale insulin. 6. DVT prophylaxis: Pradaxa, SCDs. Aaron Canela MD Jun 26, 2017 15:39
[2017-06-26] MEDS ORDERED: GLUCAGON 1 MG/ML VIAL OTHER PRN (15:45)
[2017-06-26] MEDS ORDERED: DEXTROSE 50% IN WATER 50 ML VIAL(D50) IV PUSH PRN (15:45)
[2017-06-26 15:50] VITALS: BP 165/90; PULSE 71; RESP 18; TEMP 97.1; O2SAT 93
[2017-06-26] MEDS: metFORMIN HCL 500 MG TAB PO SCH (16:54)
[2017-06-26] MEDS: INSULIN ASPART SUPPLEMENTAL SCALE SQ SCH ×2 (16:57→21:47)
[2017-06-26 18:26] VITALS: BP 177/84; PULSE 80; TEMP 97.1; O2SAT 96
[2017-06-26] MEDS: oxyCODONE/ACETAMINOPHEN 5 MG/325 MG TAB PO PRN (21:47)
[2017-06-27 00:07] VITALS: BP 122/84; PULSE 71; RESP 16; TEMP 98.6; O2SAT 97
[2017-06-27] MEDS: oxyCODONE/ACETAMINOPHEN 5 MG/325 MG TAB PO PRN ×3 (03:17→12:50)
[2017-06-27 04:20] VITALS: BP 139/67; PULSE 74; RESP 17; TEMP 97.3; O2SAT 96
[2017-06-27] MEDS ORDERED: LEVOTHYROXINE SODIUM 75 MCG TAB PO SCH (06:00)
--- NOTE | 2017-06-27 06:19 | PD.ORT.PN ---
Subjective Post Op Day #: 1 Subjective Remarks She is doing well. She has minimal complaints related to the shoulder. She feels that it is less painful than it was preoperatively. Distance Walked 50 feet with therapy. Objective Vitals Vital Signs Date Time Temp Pulse Resp B/P (MAP) Pulse Ox O2 Delivery O2 Flow Rate FiO2 06/27/17 04:20 97.3 74 17 139/67 (91) 96 06/27/17 00:07 98.6 71 16 122/84 (97) 97 06/26/17 18:26 97.1 80 177/84 (115) 96 06/26/17 15:50 97.1 71 18 165/90 (115) 93 06/26/17 15:45 69 14 150/82 (104) 96 Room Air 06/26/17 15:00 69 14 148/85 (106) 94 Room Air 06/26/17 14:00 69 14 155/83 (107) 98 Nasal Cannula 4 06/26/17 13:00 69 14 152/86 (108) 98 Nasal Cannula 4 06/26/17 12:45 69 14 153/82 (105) 98 Nasal Cannula 4 06/26/17 12:30 69 14 153/80 (104) 97 Nasal Cannula 4 06/26/17 12:15 69 14 149/75 (99) 97 Nasal Cannula 4 06/26/17 12:00 69 14 143/76 (98) 97 Nasal Cannula 4 06/26/17 11:45 69 14 138/76 (96) 95 Nasal Cannula 4 06/26/17 11:35 97.3 69 14 130/69 (89) 92 Nasal Cannula 4 06/26/17 08:00 Nasal Cannula 2 06/26/17 07:35 97.9 71 18 145/78 (100) 97 I/O 06/26/17 06/26/17 06/26/17 06/27/17 06/27/17 06/27/17 07:00 15:00 23:00 07:00 15:00 23:00 Intake Total 600 ml 120 ml 100 ml Output Total 50 ml 50 ml Balance 550 ml 70 ml 100 ml Intake Oral 120 ml IV Total 600 ml 100 ml Output Urine Total 50 ml Estimated Blood Loss 50 ml # Voids 3 Other Results Laboratory Tests Test 06/26/17 07:35 Prothromb Time International Ratio 1.1 RATIO Prothrombin Time 11.1 SEC (9.8-11.6) Imaging Last 24 hours Impressions Shoulder X-Ray 06/26/17 1105 Signed Impressions: Service Date/Time: Monday, June 26, 2017 13:48 - CONCLUSION: Status post left shoulder replacement with prosthesis in good position. Myke Lund MD Objective Remarks She is out of bed, standing at the sink, washing her face. The dressing is dry and intact. Her motion is fairly good. Her neurovascular status is intact. Assessment & Plan Ortho Post Op Day #: 1 Problem List: (1) Primary osteoarthritis of left shoulder ICD Codes: M19.012 - Primary osteoarthritis, left shoulder Status: Resolved (2) Status post total replacement of left shoulder ICD Codes: Z96.612 - Presence of left artificial shoulder joint Status: Acute Plan: Continue postoperative care and therapy. I have discussed the procedure with her and her daughter. Assessment and Plan Condition: Good. Orthopedically stable. DVT prophylaxis: Sequentials, ADRIANA stockings. Discharge plans: Home with home health care. An appointment was scheduled through the office. Prescriptions: [place] 5/325 Scooby Parra MD ([place]) Jun 27, 2017 06:19
[2017-06-27] MEDS ORDERED: NORC5TAB PO (06:35)
--- NOTE | 2017-06-27 06:42 | HHI.DS ---
Discharge Summary Admission Date Jun 26, 2017 at 06:59 Diagnosis: (1) Primary osteoarthritis of left shoulder Diagnosis: Principal ICD Codes: M19.012 - Primary osteoarthritis, left shoulder Status: Resolved (2) Status post total replacement of left shoulder Diagnosis: Principal ICD Codes: Z96.612 - Presence of left artificial shoulder joint Status: Acute (3) Type 2 diabetes mellitus Diagnosis: Secondary ICD Codes: E11.9 - Type 2 diabetes mellitus without complications Status: Acute (4) Hypothyroidism Diagnosis: Secondary ICD Codes: E03.9 - Hypothyroidism, unspecified (5) Atrial fibrillation Diagnosis: Secondary ICD Codes: I48.91 - Unspecified atrial fibrillation (6) Diabetes mellitus Diagnosis: Secondary ICD Codes: E11.9 - Type 2 diabetes mellitus without complications Procedures Left total shoulder arthroplasty using [place] ReUnion prosthesis on 06/26/2017. Brief History This is a 82 year old female patient has had progressive worsening of pain in her shoulder so that it limits her activities of daily living. She has pain requiring opiates in order to rest. She has limited function on a daily basis. Physical findings showed limited range of motion of the shoulder with tenderness on motion and crepitation on motion showed loss of articular cartilage to bone on bone in the shoulder with osteophytes in the glenoid and proximal humerus. Significant Findings Laboratory Tests Test 06/26/17 07:35 Imaging Last 72 hours Impressions Shoulder X-Ray 06/26/17 1105 Signed Impressions: Service Date/Time: Monday, June 26, 2017 13:48 - CONCLUSION: Status post left shoulder replacement with prosthesis in good position. Myke Lund MD PE at Discharge She is out of bed, standing at the sink, washing her face. The dressing is dry and intact. Her motion is fairly good. Her neurovascular status is intact. Hospital Course The patient was admitted as noted above. The above noted operative procedure was carried out that day. Preoperatively prophylactic antibiotics were administered Ancef according to protocol. These were continued postoperatively. The patient also received tranexamic acid to help with hemostasis according to protocol. In the postanesthesia care unit, mechanical methods of DVT prophylaxis in the form of ADRIANA stockings and sequentials were initiated. Physical therapy was initiated on the day of surgery. On postoperative day #1 physical therapy continued. The patient continued physical therapy throughout the hospitalization. The distance walked improved throughout the hospitalization. Her range of motion improved. She functions well. The patient was discharged on postoperative day 1 with the disposition being to home with home health care. An appointment for follow-up was made prior to admission. Pt Condition on Discharge: Good Discharge Disposition: Disch w/ Home Health Serv Discharge Instructions Diet Instructions: As Tolerated, No Restrictions Activities You Can Perform: Full Weight Bearing, Shower Only-No Bath Activities to Avoid: Lifting/Bending, Strenuous Activity, Bathing, Driving Additional Activity Instruc.: Externally rotate the left shoulder for 6 weeks postoperatively. Do not forcibly internally rotate the left shoulder for 6 weeks postoperatively. Follow up Referrals: Orthopedics with Scooby Parra MD ([place]) New Medications: Hydrocodone-Acetaminophen ([place]) 5 Mg-325 Mg Tab 1 TAB PO Q4H PRN for PAIN, #30 TAB 0 Refills Continued Medications: Acetaminophen-Codeine (Acetaminophen-Codeine) 300-30 mg Tab 1 TAB PO DAILY for Pain Management, TAB 0 Refills Atenolol (Atenolol) 50 Mg Tab 50 MG PO DAILY for Blood Pressure Management, #30 TAB 0 Refills Atorvastatin (Atorvastatin) 40 Mg Tab 40 MG PO DAILY for Cholesterol Management, #30 TAB 0 Refills Cholecalciferol (Vitamin D3) 5,000 Unit Cap 5000 UNITS PO DAILY for Nutritional Supplement, #30 CAP 0 Refills Dabigatran (Pradaxa) 150 Mg Cap 150 MG PO BID for Blood Clot Prevention, #60 CAP 0 Refills Digoxin (Digoxin) 0.125 Mg Tab 0.125 MG PO DAILY for Regulate Heart Beat, #30 TAB 0 Refills Diltiazem ER 24 HR (Diltiazem ER 24 HR) 300 Mg Caper 300 MG PO DAILY, #30 CAP 0 Refills Levothyroxine (Levothyroxine) 75 Mcg Tab 75 MCG PO DAILY for Thyroid, #30 TAB 0 Refills Metformin (Metformin) 500 Mg Tab 500 MG PO BIDPC for Blood Sugar Management, #60 TAB 0 Refills Omeprazole (Omeprazole) 20 Mg Tab 20 MG PO DAILY, #30 TAB 0 Refills Scooby Parra MD ([place]) Jun 27, 2017 06:42
[2017-06-27 07:57] LABS: HEMATOCRIT 37.2 % (35.0-46.0); HEMOGLOBIN 12.4 GM/DL (11.6-15.3)
[2017-06-27] MEDS: INSULIN ASPART SUPPLEMENTAL SCALE SQ SCH ×2 (08:00→12:00)
[2017-06-27 08:18] LABS: BICARBONATE 25.1 MEQ/L (21.0-32.0); CALCIUM 9.7 MG/DL (8.5-10.1); CREATININE 0.97 MG/DL (0.50-1.00)
[2017-06-27 08:21] VITALS: BP 155/92; PULSE 74; RESP 18; TEMP 97.3; O2SAT 96
[2017-06-27] MEDS: metFORMIN HCL 500 MG TAB PO SCH (08:45)
[2017-06-27] MEDS ORDERED: CHOLECALCIFEROL (VIT D3) 5000 UNIT CAP PO SCH (09:00)
[2017-06-27] MEDS ORDERED: DILTIAZEM-CD 300 MG CAP ER PO SCH (09:00)
[2017-06-27] MEDS ORDERED: ATENOLOL 50 MG TAB PO SCH (09:00)
[2017-06-27] MEDS ORDERED: PANTOPRAZOLE SOD 20 MG DELAYED RELEASE TAB PO SCH (09:00)
[2017-06-27] MEDS ORDERED: ATORVASTATIN 40 MG TAB PO SCH (09:00)
[2017-06-27] MEDS ORDERED: DIGOXIN 0.125 MG TAB PO SCH (09:00)
[2017-06-27 09:55] VITALS: O2SAT 98
[2017-06-27] MEDS ORDERED: DABIGATRAN ETEXILATE 150 MG CAP PO SCH (10:00)
[2017-06-27] MEDS: LACTATED RINGER'S 1000 ML INJ 1,000 ML IV SCH (12:05)
[2017-06-27] MEDS ORDERED: DOCUSATE SODIUM 100 MG CAP PO SCH (21:00)
== END 2017-06-27 13:22 | disposition home health service (06) | DRG 483 ==
LOC: HSDI 06:59 → N06B 15:55
PROVIDERS: ADMIT Orthopaedic Surgery; ATTEND Orthopaedic Surgery
PROC: 3E0T3BZ Introduction of Anesthetic Agent into Peripheral Nerves and Plexi, Percutaneous Approach (ICD-10-PCS; 2017-06-26)
PROC: 0RRK0JZ Replacement of Left Shoulder Joint with Synthetic Substitute, Open Approach (ICD-10-PCS; principal; 2017-06-26 08:23)
DX: M19.012 Primary osteoarthritis, left shoulder (principal); I48.91 Unspecified atrial fibrillation; E11.9 Type 2 diabetes mellitus without complications; I10 Essential (primary) hypertension; E03.9 Hypothyroidism, unspecified; Z96.652 Presence of left artificial knee joint; Z96.641 Presence of right artificial hip joint; Z87.891 Personal history of nicotine dependence; Z80.0 Family history of malignant neoplasm of digestive organs; Z95.0 Presence of cardiac pacemaker
CPT/HCPCS: 73030; 80048; 82948; 85014; 85018; 85610; 85730; 86850; 86900; 86901; 94150; C1776; J0131; J0690; J1100; J1580; J1815; J2250; J2370; J2405; J2710; J3010; J7120